=== PATIENT | female | born 1980 | race Caucasian/White ===

== ENCOUNTER 2021-12-13 23:38 | Inpatient (IN) | payer OTHER ==
[~2021-12-13] VITALS: Ht 172.7 cm; Wt 96.6 kg
[2021-12-14] MEDS ORDERED: HYZAAR 100-12.1 EACH (00:17)
--- NOTE | 2021-12-14 00:18 | NUR ---
SE RECIBE PTE ALERTA Y ORIENTADA POR CHIQUITA. PTE REFIERE PRESENTAR SANGRADO VAGINAL DESDE HACE 3 SEMANAS Y INDICA QUE EL LABORATORIO LA LLAMO PARA INFORMARLE QUE [place] HEMOGLOBINA ESTABA EN 6.
--- NOTE | 2021-12-14 02:02 | NUR ---
PTE FEMENINA ALERTA Y ORIENTADA EN LAS CHIQUITA ESFERAS ES EVALUADA POR . SE ORIENTA SOBRE ORDENES DE [place] REFIERE COMPRENDER. SE EXTRAEN MUESTRAS DE LABORATORIOS Y SE CANALIZA VENA BAJO MEDIDAS ASEPTICAS. SE ADMINISTRAN LIQUIDOS INTRAVENOSOS, ALECIA ORDEN MEDICA. SE ENTREGA ENVASE PARA COLECCION DE U/A Y SE ORIENTA A PTE REFIERE ENTENDER. SE NOTIFICA A PERSONAL DE SONOGRAFIA PARA ESTUDIO.
--- NOTE | 2021-12-14 03:24 | NUR ---
0210 SE CONTACTA A [facility] PARACONOCER SI PTE POSEE HX REFIERE QUE PTE NO TIENE HX. 0250 SE COLECTAN TUBOS PILOTOS, BAJO MEDIDAS ASEPTICAS. SE REQUIZAN DOS UNIDADES DE PRBC'S PARA TRANSFUNDIR. SE CONTACTA A [facility] Y SE NOTIFICAN LAS MISMAS A .
--- NOTE | 2021-12-14 07:34 | NUR ---
PACIENTE EN ESPERA DE TRANFUNDIR 2 UNIDADES DE PRBC COMPLETAS. PACIENTE FEMINA DE 41 ANOS DE EDAD. PACIENTE EN TRAGDA POR GONZÁLEZ RODRIGUEZ. 7:40AM SE REALIZA LLAMADA A PERSONAL DE [facility] A EXTENCION Y SE LOGRA CONTACTO CON SRA. PADILLA CUAL NOTIFICA UNIDADES DE LENA NO BLAIR LLEGADO.
--- NOTE | 2021-12-14 07:41 | NUR ---
PACIENTE AL MOMENTO EN ESPERA DE CONSULTA CON KIRSTEN MEEHAN POR ANEMIA.
--- NOTE | 2021-12-14 09:32 | NUR ---
SE ALEXANDER MEDIDAS PARA MEDIAS AMTIEMBOLICAS, SE ENTREGA HOJA PARA REALIZAR COMPRA DE LA MISMA A PACIENTE, AL MOMENTO SE REALIZA ADMINISTRACION DE MEDICAMENTO PREMARIN Y SE ORENTA A PACIENTE SOBRE USO Y EFECTO DEL MEDICAMENTOS A SER ADMINISTRADO.
--- NOTE | 2021-12-14 09:43 | NUR ---
SE REALIZA LLAMADA A [facility] Y SE LOGRA CONTACTO CON VALERIE ASKEW Y NOTIFICA QUE NO HERNANDEZ LLEGADO LA UNIDAD DE LENA DE PACIENTE. SE MANTIENE EN ESPERA DE UNIDADES.
--- NOTE | 2021-12-14 11:50 | NUR ---
12:10 UNIDAD DE LENA AL MOMENTO NO HERNANDEZ LLEGADO, SE REALIZA LLAMADA A [facility] A LA 1018 Y SRA. PADILLA NOTIFICA AUN NO HERNANDEZ LLEGADO. AL MOMENTO SE MANTIENA A PACIENTE EN OBSERVACION.
--- NOTE | 2021-12-14 13:38 | NUR ---
13:20PM SE COMIENZA A TRANFUNDIR LA UNIDAD DE LENA [id number],PACIENTE REFIERE LA INFORMANCION DEMOGRAFICA ESTA CORRECTA Y LA FECHA DE NACIMIENTO, PACIENTE MANTIENE VITALES ESTABLES Y SE ORIENTA SOBRE ORDEN DE TRANFUCION DE LENA. PACIENTE CON ORDEN DE ADMINISTRAR 2 UNIDADES DE PRBC COMPLETAS PACIENTE O POSITIVO Y 2 VENOPUNCIONES UNIDAD DE LENA BAJANDO POR IV PUMP. PACIENTE CON MONITOREO DE SIGNOS VITALES CADA 15 MINUTOS. SE MANTIENE A PACIENTE EN MONITOREO SANDHYA.
--- NOTE | 2021-12-14 23:15 | NUR ---
SE MIDEN SIGNOS VITALES, PTE PRESENTA B/P:150/100. SE NOTIFICA A PIA.CURTIS LA CUAL INDICA QUE PTE SE TOME [facility] MEDICACION DIARIA (LOSARTAN 100MG).SE LE INDICA A PTE ORDEN DE LA PIA.CURTIS LA MISMA KATE [facility] MEDICAMENTO DE B/P.
[2021-12-15] MEDS ORDERED: MEGESTROL ACETA40 MG PO (18:48)
[2021-12-15] MEDS ORDERED: TANDEM PLUS CA1 EACH PO (18:48)
== END 2021-12-15 20:12 | disposition home or self-care (01) | DRG 812 ==
LOC: ER 23:38 → OB/GYN 12-14 21:34
PROVIDERS: ADMIT Obstetrics & Gynecology; ATTEND Obstetrics & Gynecology
PROC: 30233N1 Transfusion of Nonautologous Red Blood Cells into Peripheral Vein, Percutaneous Approach (ICD-10-PCS; principal; 2021-12-14)
PROC: BU4CZZZ Ultrasonography of Uterus and Ovaries (ICD-10-PCS; 2021-12-14)
DX: D50.0 Iron deficiency anemia secondary to blood loss (chronic) (principal); N93.8 Other specified abnormal uterine and vaginal bleeding; Z20.822 Contact with and (suspected) exposure to COVID-19

== ENCOUNTER 2021-12-24 06:49 | Day surgery (SDC) | payer OTHER ==
[~2021-12-24] VITALS: Ht 172.7 cm; Wt 97.1 kg
[~2021-12-24 06:49] MED LIST: HYZAAR 100-12.1 EACH; MEGESTROL ACETA40 MG PO; TANDEM PLUS CA1 EACH PO
== END 2021-12-24 17:55 | disposition home or self-care (01) ==
LOC: CIR.AMB 06:49
PROVIDERS: ATTEND Obstetrics & Gynecology
DX: D25.0 Submucous leiomyoma of uterus (principal); N84.0 Polyp of corpus uteri; Z20.822 Contact with and (suspected) exposure to COVID-19; Z88.2 Allergy status to sulfonamides; I10 Essential (primary) hypertension

== ENCOUNTER 2024-04-19 05:15 | Day surgery (SDC) | payer OTHER ==
[2024-04-19] MEDS ORDERED: CEFAZOLIN SODIUM 1,000 MG VIAL ONE (06:38)
[2024-04-19] MEDS ORDERED: POVIDONE-IODINE 118 ML BOTT TOP ONE (07:13)
[2024-04-19] MEDS ORDERED: DOXYCYCLINE HY100 M3 PO (09:38)
== END 2024-04-19 13:20 | disposition home or self-care (01) ==
LOC: CIR.AMB 05:15
PROVIDERS: ATTEND Obstetrics & Gynecology
DX: D39.0 Neoplasm of uncertain behavior of uterus (principal); N92.0 Excessive and frequent menstruation with regular cycle; N84.0 Polyp of corpus uteri; I10 Essential (primary) hypertension; Z88.2 Allergy status to sulfonamides

== ENCOUNTER 2025-01-25 10:45 | Inpatient (IN) | payer OTHER ==
[~2025-01-25] VITALS: Ht 172.7 cm; Wt 99.8 kg
[~2025-01-25 10:45] MED LIST changes: +DOXYCYCLINE HY100 M3 PO
[2025-01-25 15:47] LABS: RH POSITIVE
[2025-01-31] MEDS ORDERED: POVIDONE-IODINE 118 ML BOTT TOP ONE (09:15)
[2025-01-31] MEDS ORDERED: CEFAZOLIN SODIUM 1,000 MG VIAL IV SCH (09:15)
[2025-01-31] MEDS ORDERED: VISTASEAL DUAL APPICATOR 1 EACH APPL TOP ONE (10:00)
[2025-01-31] MEDS ORDERED: THROMBIN,HU/FIBRINOGEN/CALCIUM 10 ML SYRINGE TOP ONE (10:00)
[2025-01-31] MEDS ORDERED: MORPHINE SULFATE 4 MG/ML VIAL IV ONE ×2 (10:50→11:20)
[2025-01-31] MEDS ORDERED: ONDANSETRON HCL 2 MG/ML VIAL IV PRN (11:00)
[2025-01-31] MEDS ORDERED: RINGERS SOLUTION,LACTATED 1,000 ML IV SCH (11:00)
[2025-01-31] MEDS ORDERED: MORPHINE SULFATE 4 MG/ML CARTRIDGE IV PRN (11:00)
[2025-01-31 14:02] LABS: BASO % 0.1 % (0.1-1.2); EOS # 0.01 (0.04-0.54); EOS % 0.1 % (0.7-7.0); LYMPH # 0.95 (1.18-3.74); LYMPH % 7.1 % (19.3-53.1); MEAN PLATELET VOLUME 10.00 fl (9.4-12.4); MONO # 0.75 (0.24-0.82); MONO % 5.6 % (4.7-12.5); NEUT # 11.65 (1.56-6.13); NEUT % 86.8 % (34.0-71.1); RED CELL DISTRIBUTION WIDTH 17.7 % (11.6-14.4)
[2025-01-31] MEDS ORDERED: KETOROLAC TROMETHAMINE 30 MG VIAL IV NR (14:15)
[2025-01-31 14:20] VITALS: BP 136/82
[2025-01-31 16:00] VITALS: BP 133/80
[2025-01-31] MEDS ORDERED: ENOXAPARIN SODIUM 40 MG/0.4 ML SYRINGE SUBCUTANEO SCH (17:00)
[2025-01-31] MEDS ORDERED: CEFOXITIN SODIUM 2,000 MG VIAL IV SCH (17:00)
[2025-01-31] MEDS ORDERED: KETOROLAC TROMETHAMINE 30 MG VIAL IV SCH (21:00)
[2025-02-01 02:20] VITALS: BP 134/81
[2025-02-01 06:27] VITALS: BP 130/80
[2025-02-01 07:28] LABS: BASO % 0.2 % (0.1-1.2); EOS # 0.07 (0.04-0.54); EOS % 0.8 % (0.7-7.0); LYMPH # 0.65 (1.18-3.74); LYMPH % 7.1 % (19.3-53.1); MEAN PLATELET VOLUME 10.40 fl (9.4-12.4); MONO # 0.65 (0.24-0.82); MONO % 7.1 % (4.7-12.5); NEUT # 7.74 (1.56-6.13); NEUT % 84.5 % (34.0-71.1); RED CELL DISTRIBUTION WIDTH 17.6 % (11.6-14.4)
[2025-02-01 08:20] VITALS: BP 130/85
[2025-02-01 08:53] VITALS: BP 130/90
[2025-02-01] MEDS ORDERED: ACETAMINOPHEN WITH CODEINE 1 UDTAB TABLET PO PRN (09:00)
[2025-02-01] MEDS ORDERED: DICLOFENAC POTA50 MG PO (12:24)
[2025-02-01] MEDS ORDERED: ACETAMINOPHEN-1 EAC2 PO (12:26)
[2025-02-01] MEDS ORDERED: COLACE100 MG PO (12:27)
[2025-02-01] MEDS ORDERED: RELAFEN DS1000 MG PO (12:30)
== END 2025-02-01 13:44 | disposition home or self-care (01) | DRG 743 ==
LOC: O/R 01-31 05:33 → SURH 01-31 07:00 → OB/GYN 01-31 12:45
PROVIDERS: ADMIT Obstetrics & Gynecology; ATTEND Obstetrics & Gynecology
PROC: 0UT74ZZ Resection of Bilateral Fallopian Tubes, Percutaneous Endoscopic Approach (ICD-10-PCS; 2025-01-31)
PROC: 0UT94ZZ Resection of Uterus, Percutaneous Endoscopic Approach (ICD-10-PCS; principal; 2025-01-31 07:00)
DX: N92.0 Excessive and frequent menstruation with regular cycle (principal); D50.0 Iron deficiency anemia secondary to blood loss (chronic); D50.8 Other iron deficiency anemias